=== PATIENT | male | born 1990 | race Caucasian/White ===

== ENCOUNTER → 2017-11-06 | Outpatient (CLI) | payer OTHER ==
--- NOTE | 2017-11-06 08:47 | Diagnostic Imaging Report ---
PROCEDURE: MRI right joint lower extremity without contrast. TECHNIQUE: A multiplanar/multisequence noncontrast enhanced MRI of the right lower extremity was accomplished. INDICATION: Right knee pain with no known injury. COMPARISON: None. FINDINGS: No acute fracture or dislocation is seen in the right knee. There is a 5 mm T2 bright, well-circumscribed focus in the distal metaphysis of the femur without surrounding edema which may represent a small enchondroma or cyst. No right knee joint effusion is seen. The bone marrow signal about the right knee is otherwise unremarkable. There is mild heterogeneity of the patellofemoral articular cartilage without significant full-thickness defects. The medial and lateral compartment articular cartilage likewise demonstrates no large full-thickness defects. There is a complex, predominantly horizontal tear of the posterior horn of the medial meniscus extending into the body. A small medial parameniscal cyst is seen measuring up to 7 mm in size. The lateral meniscus is normal in appearance. The anterior and posterior cruciate ligaments are intact. The medial collateral ligament demonstrates focal fraying at the anterior fibers with moderate fluid superficial to the ligament. The lateral collateral ligamentous complex is intact. The extensor mechanism is intact. There is trace fluid in a Pablo's cyst. No other soft tissue fluid collections or masses are seen. IMPRESSION: 1. Complex, predominantly horizontal tear of the right knee medial meniscus at the posterior horn extending to the body. There is a small associated parameniscal cyst. 2. Grade 2 sprain of the right medial collateral ligament with adjacent edema/fluid. Dictated by: Dictated on workstation # [id number]
== END ==
LOC: RAD 07:23
PROVIDERS: ATTEND Orthopaedic Surgery
DX: S83.241A Other tear of medial meniscus, current injury, right knee, initial encounter (principal); S83.411A Sprain of medial collateral ligament of right knee, initial encounter; M94.8X8 Other specified disorders of cartilage, other site; M25.461 Effusion, right knee; M22.41 Chondromalacia patellae, right knee
CPT/HCPCS: 73721